=== PATIENT | male | born 1965 | race Caucasian/White ===

== ENCOUNTER 2016-05-05 12:19 | Emergency (ER) | payer MEDICAID ==
[~2016-05-05] VITALS: Ht 177.8 cm; Wt 70.9 kg
[2016-05-05 12:51] VITALS: BP 96/63
[2016-05-05] MEDS ORDERED: HYDROcodone/APAP 5/325 TABLET PO ONE (13:00)
[2016-05-05] MEDS ORDERED: HYDROcodone/APAP 5/325 TABLET ONE (13:29)
== END 2016-05-05 13:43 | disposition home or self-care (01) ==
LOC: ED 13:10
DX: K08.89 Other specified disorders of teeth and supporting structures (principal); R11.0 Nausea
CPT/HCPCS: 99283

== ENCOUNTER 2016-08-02 19:41 | Emergency (ER) | payer MEDICAID ==
[~2016-08-02] VITALS: Ht 177.8 cm; Wt 66.7 kg
[2016-08-02 19:43] VITALS: BP 107/68
== END 2016-08-02 20:14 | disposition home or self-care (01) ==
LOC: ED 20:08
DX: K02.9 Dental caries, unspecified (principal); K08.89 Other specified disorders of teeth and supporting structures
CPT/HCPCS: 99283

== ENCOUNTER 2016-08-19 00:55 | Emergency (ER) | payer MEDICAID ==
[~2016-08-19] VITALS: Ht 177.8 cm; Wt 65.7 kg
[2016-08-19 00:56] VITALS: BP 106/69
== END 2016-08-19 01:45 | disposition home or self-care (01) ==
LOC: ED 01:15
DX: K02.9 Dental caries, unspecified (principal); R51 Headache
CPT/HCPCS: 99283

== ENCOUNTER 2018-07-10 05:45 | Emergency (ER) | payer MEDICAID ==
[~2018-07-10] VITALS: Ht 177.8 cm; Wt 70.0 kg
[2018-07-10 05:50] VITALS: BP 95/51
== END 2018-07-10 06:16 | disposition home or self-care (01) ==
LOC: ED 06:15
DX: K02.9 Dental caries, unspecified (principal); F10.220 Alcohol dependence with intoxication, uncomplicated; F17.210 Nicotine dependence, cigarettes, uncomplicated
CPT/HCPCS: 99283